=== PATIENT | male | born 1980 | race Caucasian/White ===

== ENCOUNTER 2021-01-20 11:14 | Emergency (ER) | payer SELFPAY ==
[2021-01-20 11:40] VITALS: BP 182/117; PULSE 74; RESP 19; TEMP 36.8; O2SAT 98; BMI 45.1
[2021-01-20 12:15] VITALS: BP 182/117; PULSE 74; RESP 19; TEMP 36.8; O2SAT 98
--- NOTE | 2021-01-20 12:26 | HMH.EDUTC ---
[facility] [place] Disposition Clinical Impression: Otitis externa Qualifiers: Otitis externa type: unspecified type Chronicity: unspecified Laterality: right Qualified Code(s): H60.91 - Unspecified otitis externa, right ear Otitis media Qualifiers: Otitis media type: unspecified Laterality: right Qualified Code(s): H66.91 - Otitis media, unspecified, right ear Disposition: Home, Self-Care Condition on Discharge: Good Instructions: DI for Otitis Externa, Ofloxacin Otic Additional Instructions: Follow up with your Family Doctor for recheck and monitoring of blood pressure to see if you may need an additional medication to help lower your blood pressure Use ear drops as prescribed and follow up with your Family Doctor if symptoms do not improve Over the counter Motrin and/or Tylenol may help with pain associated with your ear Return if needed Straight to ER if any life threatening symptoms Prescriptions: Ofloxacin [Floxin 0.3% OTIC Solution 5mL] 10 drops EAR-RIGHT BID 14 Days #15 ml Transmission Status: Received by [id number] Referrals: Shiva Russell [Primary Care Provider] - As needed Forms: Work/School Release Medical Decision Making - Munir Inquiry Pt receiving controlled substance: No Munir was queried for this patient: No Vital Signs: 01/20/21 11:40 01/20/21 12:15 Temperature 98.3 F 98.3 F Temperature Source Oral Pulse Rate 74 Pulse Rate [Right Brachial] 74 Respiratory Rate 19 19 Blood Pressure 182/117 H Blood Pressure [Right Arm] 182/117 H Blood Pressure Mean [Right Arm] 138 Blood Pressure Source [Right Arm] Automatic Cuff Blood Pressure Position [Right Arm] Sitting 02 Sat by Pulse Oximetry 98 Oxygen Delivery Method Room Air [facility] [place] HPI - General Stated complaint: ear pain Time Seen by Provider: 01/20/21 11:45 Mode of Arrival: Ambulatory Source of Information: Patient Limitations: No Limitations Description of Symptoms (Recalled from Triage Doc. by RN): PATIENT C/O RIGHT EAR ACHE X 1 WEEK HEENT Symptoms (Recalled from RN notes): Yes Resp Symptoms (Recalled from RN notes): No Skin Symptoms (Recalled from RN notes): No MS Symptoms (Recalled from RN notes): No Functional Status (Recalled from RN notes): WNL - History of Present Illness Provider Complaint: Patient states that he has been having pain in his right ear for over a week States that he just finished augmentin for ear infection but feels like it hasnt helped and got worse so he came in today to get it checked - Related Data Previous Rx's Medication Instructions Recorded amoxicillin 875 mg-potassium 1 tab PO BID 10 Days #20 tab 01/08/21 clavulanate 125 mg tablet Ofloxacin [Floxin 0.3% OTIC 10 drops EAR-RIGHT BID 14 Days #15 01/20/21 Solution 5mL] ml Allergies Allergy/AdvReac Type Severity Reaction Status Date / Time No Known Allergies Allergy Verified 01/08/21 18:35 - Worker's Comp Is this a Worker's Comp case?: No [facility] History - Hepatitis A Screen Drug use history?: No High risk sexual behaviors?: No History of sexually transmitted infection?: No Currently employed?: No Childcare worker?: No Do you have indoor plumbing?: Yes Do you have electricity?: Yes Attestation statement:: This patient has been screened for Hepatitis A risk factors. I have reviewed the patient's past medical history: Yes Amputation: No Fractures: No Comment: L5 disc shave; vasectomy - Social History Smoking Status: Never smoker Alcohol Intake: current Alcohol Intake Frequency:: holidays/special occasions only Occupational Status: employed ROS Obtained: Yes All systems reviewed & no additional complaints, Yes Systems reviewed as appropriate & no additional complaints - Constitutional Constitutional: Reports system reviewed and no additional complaints, except as docu - ENT Ears, Nose, Mouth, and Throat: Reports system reviewed and no additional complaints, except as docu, Reports otalgia Physical Exam - General
== END 2021-01-20 12:20 | disposition home or self-care (01) ==
PROVIDERS: Emergency Provider Nurse Practitioner; PCP Family Medicine
DX: H60.91 Unspecified otitis externa, right ear (principal); H66.91 Otitis media, unspecified, right ear
CPT/HCPCS: 99202; G0463

== ENCOUNTER → 2022-05-03 23:19 | Outpatient (CLI) | payer OTHER, SELFPAY ==
[2022-05-03 17:34] LABS: Basophils # 0.1 K/mm3 (0-0.2); Basophils % 1.2 % (0.1-2.0); Eosinophils # 0.3 K/mm3 (0.0-0.4); Eosinophils % 2.7 % (0.1-12.0); Hematocrit 47.2 % (42.0-52.0); Hemoglobin 15.1 g/dL (14.1-18.0); Lymphocytes # 3.2 K/mm3 (0.7-4.5); Lymphocytes % 33.7 % (10-50); Mean Corpuscular HGB Conc 32.1 g/dL (31.8-35.4); Mean Corpuscular Volume 77.8 fl (80-94); Mean Platelet Volume 9.5 fl (7.4-10.4); Monocytes # 0.5 K/mm3 (0.1-1.0); Monocytes % 5.2 % (1.7-9.3); Neutrophils # 5.5 K/mm3 (1.8-7.8); Neutrophils % 57.2 % (37.0-80.0); Platelet Count 318 K/mm3 (142-424); Red Blood Count 6.07 M/mm3 (4.60-6.20); Red Cell Distribution Width 15.5 % (11.5-17.5); White Blood Count 9.6 K/mm3 (4.8-10.8)
[2022-05-03 17:40] LABS: Alanine Aminotransferase 28 U/L (12-78); Albumin Level 4.2 g/dl (3.5-5.0); Albumin/Globulin Ratio 1.5 (1.1-1.8); Alkaline Phosphatase 86 U/L (38-126); Anion Gap 12.2 mEq/L (5-15); Aspartate Amino Transferase 33 U/L (17-59); Bilirubin,Total 0.6 mg/dl (0.2-1.3); Blood Urea Nitrogen 22 mg/dl (9-20); Calcium 8.7 mg/dl (8.4-10.2); Carbon Dioxide 27 mmol/L (22.0-30.0); Chloride 102 mmol/L (98-107); Chol/HDL Ratio 4.9 (1-3.5); Cholesterol 185 mg/dl (140-200); Estimated Glomerular Filt Rate 124 ml/min (>60); GFR (African American) 150 ML/MIN (>60); Globulin 2.8 g/dL (1.3-3.2); Glucose 100 mg/dl (74-100); HDL Cholesterol 38 mg/dl (40-60); Potassium 4.2 mmoL/L (3.5-5.1); Sodium 137 mmol/L (136-145); Triglycerides 172 mg/dl (30-150); VLDL Cholesterol 34 mg/dL (0-40)
[2022-05-03 17:42] LABS: Hemoglobin A1C 6.7 % (4.0-6.0)
[2022-05-03 17:51] LABS: Direct LDL Cholesterol 112.04 mg/dL (100-129)
[2022-05-03 18:11] LABS: Thyroid Stimulating Hormone 1.39 uIU/mL (0.465-4.68)
== END ==
PROVIDERS: PCP Nurse Practitioner Family; Visit Provider Nurse Practitioner Family
DX: I10 Essential (primary) hypertension (principal); Z13.1 Encounter for screening for diabetes mellitus; Z13.220 Encounter for screening for lipoid disorders
CPT/HCPCS: 80053; 80061; 83036; 84443; 85025

== ENCOUNTER 2023-04-27 19:51 | Outpatient (CLI) | payer OTHER, SELFPAY ==
[2023-04-27 19:13] LABS: Basophils # 0.1 K/mm3 (0-0.2); Basophils % 0.8 % (0.1-2.0); Eosinophils # 0.1 K/mm3 (0.0-0.4); Eosinophils % 1.9 % (0.1-12.0); Hematocrit 47.3 % (42.0-52.0); Hemoglobin 15.2 g/dL (14.1-18.0); Lymphocytes # 2.4 K/mm3 (0.7-4.5); Lymphocytes % 33.8 % (10-50); Mean Corpuscular HGB Conc 32.2 g/dL (31.8-35.4); Mean Corpuscular Hemoglobin 26.8 pg (27.0-31.2); Mean Corpuscular Volume 83.2 fl (80-94); Monocytes # 0.4 K/mm3 (0.1-1.0); Monocytes % 5.1 % (1.7-9.3); Neutrophils # 4.2 K/mm3 (1.8-7.8); Neutrophils % 58.3 % (37.0-80.0); Platelet Count 255 K/mm3 (142-424); Red Blood Count 5.69 M/mm3 (4.60-6.20); Red Cell Distribution Width 14.9 % (11.5-17.5); White Blood Count 7.1 K/mm3 (4.8-10.8)
[2023-04-27 19:34] LABS: Alanine Aminotransferase 52 U/L (12-78); Albumin Level 4.4 g/dl (3.5-5.0); Albumin/Globulin Ratio 1.6 (1.1-1.8); Alkaline Phosphatase 91 U/L (38-126); Anion Gap 13.7 mEq/L (5-15); Aspartate Amino Transferase 57 U/L (17-59); Bilirubin,Total 1.1 mg/dl (0.2-1.3); Blood Urea Nitrogen 20 mg/dl (9-20); Calcium 9.4 mg/dl (8.4-10.2); Carbon Dioxide 27 mmol/L (22.0-30.0); Chloride 100 mmol/L (98-107); Chol/HDL Ratio 5.8 (1-3.5); Cholesterol 187 mg/dl (140-200); Estimated Glomerular Filt Rate 106 ml/min (>60); GFR (African American) 128 ML/MIN (>60); Globulin 2.8 g/dL (1.3-3.2); Glucose 156 mg/dl (74-100); HDL Cholesterol 32 mg/dl (40-60); Potassium 4.7 mmoL/L (3.5-5.1); Sodium 136 mmol/L (136-145); Total Protein,Serum 7.2 g/dl (6.3-8.2); Triglycerides 228 mg/dl (30-150); VLDL Cholesterol 46 mg/dL (0-40)
[2023-04-27 19:45] LABS: Direct LDL Cholesterol 104.39 mg/dL (100-129)
[2023-04-27 19:51] LABS: 25-OH Vitamin D, Total 32.1 ng/mL (30-100)
[2023-04-27 20:04] LABS: Thyroid Stimulating Hormone 1.08 uIU/mL (0.465-4.68)
[2023-04-27 20:31] LABS: Creatinine,Urine Random 170 mg/dL (Not Estab.)
[2023-04-27 20:56] LABS: Hemoglobin A1C 8.1 % (4.0-6.0)
[2023-04-27 21:12] LABS: Microalbumin/Creatinine Ratio 282.9
== END 2023-04-27 23:59 ==
LOC: LAB.DROPOF 19:51
PROVIDERS: PCP Student in an Organized Health Care Education/Training Program; Visit Provider Student in an Organized Health Care Education/Training Program
DX: E11.9 Type 2 diabetes mellitus without complications (principal); I10 Essential (primary) hypertension; Z79.899 Other long term (current) drug therapy
CPT/HCPCS: 80053; 80061; 82043; 82306; 82570; 83036; 84155; 84443; 85025

== ENCOUNTER 2024-02-11 10:33 | Outpatient (CLI) | payer BC, OTHER, SELFPAY ==
[2024-02-11 19:38] LABS: Albumin Level 4.2 g/dl (3.5-5.0); Chloride 100 mmol/L (98-107); Potassium 3.8 mmoL/L (3.5-5.1); Sodium 132 mmol/L (136-145)
[2024-02-11 19:39] LABS: Red Blood Count 5.59 M/mm3 (4.60-6.20); White Blood Count 10.5 K/mm3 (4.8-10.8)
[2024-02-11 19:40] LABS: Basophils # 0.1 K/mm3 (0-0.2); Basophils % 0.9 % (0.1-2.0); Blood Urea Nitrogen 21 mg/dl (9-20); Eosinophils # 0.2 K/mm3 (0.0-0.4); Eosinophils % 1.9 % (0.1-12.0); Estimated Glomerular Filt Rate 106 ml/min (>60); GFR (African American) 128 ML/MIN (>60); Hematocrit 44.3 % (42.0-52.0); Hemoglobin 14.6 g/dL (14.1-18.0); Lymphocytes % 28.4 % (10-50); Mean Corpuscular Hemoglobin 26.1 pg (27.0-31.2); Mean Corpuscular Volume 79.2 fl (80-94); Mean Platelet Volume 11.6 fl (7.4-10.4); Monocytes # 0.7 K/mm3 (0.1-1.0); Monocytes % 6.5 % (1.7-9.3); Neutrophils # 6.5 K/mm3 (1.8-7.8); Platelet Count 312 K/mm3 (142-424); Red Cell Distribution Width 14.2 % (11.5-17.5)
[2024-02-11 19:41] LABS: Alanine Aminotransferase 57 U/L (12-78); Albumin/Globulin Ratio 1.6 (1.1-1.8); Alkaline Phosphatase 71 U/L (38-126); Anion Gap 7.8 mEq/L (5-15); Aspartate Amino Transferase 61 U/L (17-59); Bilirubin,Total 0.7 mg/dl (0.2-1.3); Calcium 9.3 mg/dl (8.4-10.2); Carbon Dioxide 28 mmol/L (22.0-30.0); Chol/HDL Ratio 7.3 (1-3.5); Cholesterol 191 mg/dl (140-200); Globulin 2.7 g/dL (1.3-3.2); Glucose 121 mg/dl (74-100); HDL Cholesterol 26 mg/dl (40-60); Total Protein,Serum 6.9 g/dl (6.3-8.2); Triglycerides 378 mg/dl (30-150); VLDL Cholesterol 76 mg/dL (0-40)
[2024-02-11 19:52] LABS: Direct LDL Cholesterol 107.42 mg/dL (100-129)
[2024-02-11 20:12] LABS: Thyroid Stimulating Hormone 1.76 uIU/mL (0.465-4.68)
[2024-02-11 20:22] LABS: HIV Combo NEGATIVE (Negative)
[2024-02-11 21:21] LABS: Hemoglobin A1C 7.9 % (4.0-6.0)
[2024-02-11 21:59] LABS: 25-OH Vitamin D, Total 26.3 ng/mL (30-100)
[2024-02-13 03:49] LABS: HCV Ab Non Reactive (Non Reactive)
== END 2024-02-11 23:59 | disposition home or self-care (01) ==
LOC: LAB.DROPOF 02-12 10:35
PROVIDERS: PCP Student in an Organized Health Care Education/Training Program; Visit Provider Student in an Organized Health Care Education/Training Program
DX: Z11.59 Encounter for screening for other viral diseases (principal); E55.9 Vitamin D deficiency, unspecified; E11.9 Type 2 diabetes mellitus without complications; Z79.84 Long term (current) use of oral hypoglycemic drugs; I10 Essential (primary) hypertension; Z68.42 Body mass index [BMI] 45.0-49.9, adult; E66.9 Obesity, unspecified
CPT/HCPCS: 80050; 80053; 80061; 82306; 83036; 84443; 85025; 86803; 87389

== ENCOUNTER 2024-03-15 09:18 | Emergency (ER) | payer BC, SELFPAY ==
--- NOTE | 2024-03-15 09:48 | EXP.UTC ---
Discharge Plan Disposition Patient Disposition: Still a Patient Prescriptions Prescriptions: No Action (DME) FreeStyle Lite Strips Strip See Rx Instructions .Route Qty: 100 3RF Rx Instructions: As directed (DME) blood-glucose meter [FreeStyle [place] Lite] Kit See Rx Instructions .Route Qty: 1 0RF Rx Instructions: As directed isopropyl alcohol 70 % swab 75 ea topical QID Qty: 75 1RF (DME) lancets 33 gauge misc See Rx Instructions .MEDSUPPLY Qty: 100 0RF Rx Instructions: Check Glucose lisinopril 40 mg tablet 40 mg PO DAILY Qty: 90 3RF metformin 1,000 mg tablet 1,000 mg PO BID Qty: 180 3RF guaifenesin 400 mg tablet 400 mg PO QID PRN (Reason: congestion) Qty: 20 0RF hydrochlorothiazide 25 mg tablet 25 mg PO BID Qty: 60 0RF carvedilol [Coreg] 12.5 mg tablet 12.5 mg PO BID Qty: 180 1RF Rx Instructions: must administer with a meal/food tirzepatide 2.5 mg/0.5 mL pen injector 2.5 mg SQ WEEKLY Qty: 2.5 0RF Rx Instructions: for 4 weeks cholecalciferol (vitamin D3) 50 mcg (2,000 unit) capsule 50 mcg PO DAILY Qty: 30 0RF Referrals Follow up/Referrals: Lelo Eid APRN [Primary Care Provider] - See instructions Print Language Print Language: Khmer Discharge ED Provider: Verena ([facility]el[facility] [place] HPI General Stated complaint: dizziness, vomiting, sweats Time Seen by Provider: 03/15/24 09:47 History of Present Illness Provider Complaint: 44-year-old male presents for complaints of dizziness, nausea, vomiting, vision abnormal and sweaty. Patient states he did start on Mounjaro about 3 weeks ago and he took a dose yesterday. Patient states he also had some Kazakh last night. Patient states the dizziness was slight yesterday morning and he went ahead and took his dose of Mounjaro and woke up at 430 this morning with increased in dizziness, sweaty, nausea and vomiting with vision changes. Related Data Previous Rx's ?Medication ?Instructions ?Recorded blood sugar diagnostic (FreeStyle #100 ea 05/02/23 Lite Strips) blood-glucose meter (FreeStyle #1 ea 05/02/23 [place] Lite kit) isopropyl alcohol 70 % topical swab 75 ea topical QID #75 ea 05/02/23 lancets 33 gauge #100 ea 05/02/23 lisinopril 40 mg tablet 40 mg PO DAILY #90 tabs 05/02/23 metformin 1,000 mg tablet 1,000 mg PO BID #180 tabs 05/16/23 carvedilol 12.5 mg tablet (Coreg) 12.5 mg PO BID #180 tabs 12/27/23 guaifenesin 400 mg tablet 400 mg PO QID PRN congestion #20 02/04/24 tabs hydrochlorothiazide 25 mg tablet 25 mg PO BID #60 tabs 02/04/24 cholecalciferol (vitamin D3) 50 50 mcg PO DAILY #30 caps 02/12/24 mcg (2,000 unit) capsule tirzepatide 2.5 mg/0.5 mL 2.5 mg (0.5 mL) SQ WEEKLY #2.5 mL 02/12/24 subcutaneous pen injector Allergies Allergy/AdvReac Type Severity Reaction Status Date / Time No Known Allergies Allergy Verified 03/05/24 15:38 [facility] Disclaimer: The information contained in this section may have been updated after the patient was seen, as this information can be updated by other users. Medical History , EDGE GLUER) Screening cholesterol level BMI 40.0-44.9, adult ALPHONSO (obstructive sleep apnea) Diabetes mellitus Hypertension Otitis media Otitis externa Surgical History , EDGE GLUER) No significant past surgical history Family History , EDGE GLUER) Diabetes Father Heart attack Father Cancer Mother Hypertension Father Thyroid disorder Mother Social History , EDGE GLUER) Smoking Status: Never smoker alcohol intake: current alcohol intake frequency: holidays/special occasions only substance use type: denies use current occupational status: employed Travel in the last 8 weeks: None marital status: Have you lived/traveled outside [place] in past 30 days?: No Contact w/someone who lives/traveled outside US past 30 days?: No Exposure to someone with infectious disease in past 14 days?: No Do you have a fever (greater than 100.4 F or 38 C)?: No Have you tested positive for COVID-19: No Exposed to someone with COVID-19 in past 14 days?: No Do you have a sore throat?: No Do you have a cough?: No Do you have any weakness?: No Do you have any diarrhea?: No Are you experiencing any unusual bleeding?: No Do you have any muscle aches/pain?: No Do you have any abdominal pain?: No Are you experiencing loss of taste or smell?: No ROS Obtained: Yes Systems reviewed as appropriate & no additional complaints except as documented Physical Exam General General appearance: alert and in no apparent distress Eye Eye exam: Present normal appearance and PERRL ENT ENT exam: Present normal exam Respiratory Respiratory exam: Present normal lung sounds bilaterally Cardiovascular Cardiovascular exam: Present regular rate and normal rhythm Neurological Exam Neurological exam: Present alert and oriented X3 Skin Skin exam: Present warm Medical Decision Making Medical Records Medical records reviewed: Yes I reviewed the patient's medical records. Screening: Per USPSTF and CDC recommendations, given the prevalence of disease in our region, it is our hospital?s policy to screen for HIV and viral Hepatitis for all patients aged 18 and over and those with ongoing risk factors. Munir Inquiry Pt receiving controlled substance: No Physician Consults Physician Consulted: Dr. Tom Time: 09:53 Reason -: Pt condition Comment/Response: Sent to the ER for evaluation due to hypertension, dizziness, vision changes
[2024-03-15 09:56] LABS: POC Glucose,Bedside 193 (70-110)
[2024-03-15 09:57] VITALS: BP 182/117; PULSE 76; RESP 20; TEMP 36.5; O2SAT 97; BMI 50.1
--- NOTE | 2024-03-15 09:57 | ECG_ITS ---
APPROVED REPORT Exam: Resting ECG HR:69 bpm ECG Measurements Heart Rate 69 AXES IA 151 P 159 QRSd 116 QRS 199 QT 384 T 187 QTc 403 Conclusion SINUS RHYTHM ARM LEADS REVERSED [INVERTED P AND QRS IN I] NORMAL ECG Electronically signed by : ANGEL PETERS, 03/15/2024 15:42:42
--- NOTE | 2024-03-15 10:00 | PC.NURSE ---
Fingerstick glucose 190 at 1000.
[2024-03-15] MEDS: MECLIZINE 25MG TABLET 50 MG PO (10:06)
[2024-03-15] MEDS: 0.9 % SODIUM CHLORIDE 1000ML 1,000 ML 999 ML IV (10:06)
--- NOTE | 2024-03-15 10:10 | HMH.EDGENADL ---
Discharge Plan Disposition Patient Disposition: Home, Self-Care Prescriptions Prescriptions: New meclizine 50 mg tablet 50 mg PO DAILY Qty: 30 0RF No Action (DME) FreeStyle Lite Strips Strip See Rx Instructions .Route Qty: 100 3RF Rx Instructions: As directed (DME) blood-glucose meter [FreeStyle [place] Lite] Kit See Rx Instructions .Route Qty: 1 0RF Rx Instructions: As directed isopropyl alcohol 70 % swab 75 ea topical QID Qty: 75 1RF (DME) lancets 33 gauge misc See Rx Instructions .MEDSUPPLY Qty: 100 0RF Rx Instructions: Check Glucose lisinopril 40 mg tablet 40 mg PO DAILY Qty: 90 3RF metformin 1,000 mg tablet 1,000 mg PO BID Qty: 180 3RF guaifenesin 400 mg tablet 400 mg PO QID PRN (Reason: congestion) Qty: 20 0RF hydrochlorothiazide 25 mg tablet 25 mg PO BID Qty: 60 0RF carvedilol [Coreg] 12.5 mg tablet 12.5 mg PO BID Qty: 180 1RF Rx Instructions: must administer with a meal/food tirzepatide 2.5 mg/0.5 mL pen injector 2.5 mg SQ WEEKLY Qty: 2.5 0RF Rx Instructions: for 4 weeks cholecalciferol (vitamin D3) 50 mcg (2,000 unit) capsule 50 mcg PO DAILY Qty: 30 0RF Referrals Follow up/Referrals: Lelo Eid APRN [Primary Care Provider] - See instructions Charbel Sánchez, PT [Physical Therapist] - See instructions Florencio Simmons MD [Physician] - See instructions Activity Restrictions/Add. Instructions Additional Instructions/Restrictions: Call your family doctor to establish care for this visit to the emergency department and schedule follow-up within 48 hours to ensure improvement. If you have any worsening of your condition or any other concerning signs or symptoms, return to the emergency department or your primary care doctor for further evaluation. Clinical Impressions Clinical Impression: Benign paroxysmal positional vertigo Print Language Print Language: French Discharge ED Provider: Raj Hernandes General Adult HPI General Chief complaint: Dizziness Stated complaint: dizziness, vomiting, sweats Time Seen by Provider: 03/15/24 09:47 Mode of Arrival: Wheelchair Source of Information: Patient Limitations: No Limitations Description of Symptoms (Recalled from ER Triage Doc. by RN): sweaty,dizzy,vomiting x3. History of Present Illness HPI narrative: Please note that above description of symptoms, in this electronic medical record under categorization of recalled from ER triage doctor by RN are reflective of an initial nursing assessment, however, is not reflective of my full history and physical exam that was personally taken and clarified. Consequentially, this preceding description of symptoms, which may include the patient's categorized chief complaint in the EMR, do not reflect my personal clinical impression, and the ultimate description of history of present illness and patient stated complaints should be deferred to this section of the note. Unless stated otherwise or congruent with this section of the note, additional signs, symptoms, or incongruence should be interpreted as inaccurate with my clinical impression. Related Data Previous Rx's ?Medication ?Instructions ?Recorded blood sugar diagnostic (FreeStyle #100 ea 05/02/23 Lite Strips) blood-glucose meter (FreeStyle #1 ea 05/02/23 [place] Lite kit) isopropyl alcohol 70 % topical swab 75 ea topical QID #75 ea 05/02/23 lancets 33 gauge #100 ea 05/02/23 lisinopril 40 mg tablet 40 mg PO DAILY #90 tabs 05/02/23 metformin 1,000 mg tablet 1,000 mg PO BID #180 tabs 05/16/23 carvedilol 12.5 mg tablet (Coreg) 12.5 mg PO BID #180 tabs 12/27/23 guaifenesin 400 mg tablet 400 mg PO QID PRN congestion #20 02/04/24 tabs hydrochlorothiazide 25 mg tablet 25 mg PO BID #60 tabs 02/04/24 cholecalciferol (vitamin D3) 50 50 mcg PO DAILY #30 caps 02/12/24 mcg (2,000 unit) capsule tirzepatide 2.5 mg/0.5 mL 2.5 mg (0.5 mL) SQ WEEKLY #2.5 mL 02/12/24 subcutaneous pen injector meclizine 50 mg tablet 50 mg PO DAILY #30 tabs 03/15/24 Allergies Allergy/AdvReac Type Severity Reaction Status Date / Time No Known Allergies Allergy Verified 03/05/24 15:38 [facility] Disclaimer: The information contained in this section may have been updated after the patient was seen, as this information can be updated by other users. Medical History , DIRECTOR OF UNDERGRADUATE ADMISSIONS) Screening cholesterol level BMI 40.0-44.9, adult ALPHONSO (obstructive sleep apnea) Diabetes mellitus Hypertension Otitis media Otitis externa Surgical History , DIRECTOR OF UNDERGRADUATE ADMISSIONS) No significant past surgical history Family History , DIRECTOR OF UNDERGRADUATE ADMISSIONS) Diabetes Father Heart attack Father Cancer Mother Hypertension Father Thyroid disorder Mother Social History , DIRECTOR OF UNDERGRADUATE ADMISSIONS) Smoking Status: Never smoker alcohol intake: current alcohol intake frequency: holidays/special occasions only substance use type: denies use current occupational status: employed Travel in the last 8 weeks: None marital status: Have you lived/traveled outside US in past 30 days?: No Contact w/someone who lives/traveled outside US past 30 days?: No Exposure to someone with infectious disease in past 14 days?: No Do you have a fever (greater than 100.4 F or 38 C)?: No Have you tested positive for COVID-19: No Exposed to someone with COVID-19 in past 14 days?: No Do you have a sore throat?: No Do you have a cough?: No Do you have any weakness?: No Do you have any diarrhea?: No Are you experiencing any unusual bleeding?: No Do you have any muscle aches/pain?: No Do you have any abdominal pain?: No Are you experiencing loss of taste or smell?: No Other Medical History Have you received the Pneumonia Vaccine: No ROS Obtained: Yes All systems reviewed & no additional complaints except as documented Physical Exam General General appearance: alert, in no apparent distress and obese Head Head exam: atraumatic and normocephalic Eye Eye exam: Present normal appearance, PERRL, EOMI and other (No nystagmus) Neck Neck exam: Present normal inspection, full ROM and trachea midline Respiratory Respiratory exam: Present normal lung sounds bilaterally; Absent respiratory distress, wheezes, stridor, accessory muscle use or prolonged expiratory phase Cardiovascular Cardiovascular exam: Present regular rate, normal rhythm and other (Pulses equal symmetric in upper and lower extremities) Abdominal Exam Abdominal exam: Present soft; Absent distention, tenderness or pulsatile mass Extremities Exam Extremities exam: Present edema (Minimal nonpitting) Neurological Exam Neurological exam: Present alert, oriented X3 and CN II-XII intact; Absent motor sensory deficit Skin Skin exam: Present warm and dry; Absent diaphoresis or erythema Medical Decision Making Medical Records Medical records reviewed: Yes I reviewed the patient's medical records. Screening: Per USPSTF and CDC recommendations, given the prevalence of disease in our region, it is our hospital?s policy to screen for HIV and viral Hepatitis for all patients aged 18 and over and those with ongoing risk factors. Munir Inquiry Pt receiving controlled substance: No Munir was queried for this patient: No Vital Signs: 03/15/24 09:57 03/15/24 10:21 03/15/24 10:45 Temperature 97.7 F Temperature Source Oral Pulse Rate 65 65 Pulse Rate [Right] 76 Respiratory Rate 20 16 16 Blood Pressure 178/110 H 150/102 H Blood Pressure [Right Arm] 182/117 H Blood Pressure Mean 134 118 Blood Pressure Mean [Right Arm] 138 02 Sat by Pulse Oximetry 97 97 97 Oxygen Delivery Method Room Air Lab Data Lab Results 03/15/24 09:49: POC Glucose 193 H 03/15/24 10:05: WBC 8.3, RBC 5.86, Hgb 15.0, Hct 46.8, MCV 79.9 L, MCH 25.6 L, MCHC 32.1, RDW 14.0, Plt Count 255, MPV 11.1 H, Neut % (Auto) 65.2, Lymph % (Auto) 24.9, [place] % (Auto) 5.6, Eos % (Auto) 2.8, Baso % (Auto) 0.8, Neut # (Auto) 5.4, Lymph # (Auto) 2.1, [place] # (Auto) 0.5, Eos # (Auto) 0.2, Baso # (Auto) 0.1, PT 9.5, INR 0.85 L, APTT 25.3, Sodium 138, Potassium 4.5, Chloride 102, Carbon Dioxide 29, Anion Gap 11.5, BUN 24 H, Creatinine 0.90, Estimated Creat Clear 105, Estimated GFR 92, Est GFR ( Amer) 111, Glucose 187 H, Hemoglobin A1c 7.5 H, Calcium 9.4, Magnesium 1.9, Total Bilirubin 0.4, AST 43, ALT 57, Alkaline Phosphatase 68, Troponin I < 0.01, NT-Pro-B Natriuret Pep < 20.0, Total Protein 7.4, Albumin 4.4, Globulin 3.0, Albumin/Globulin Ratio 1.5, TSH 1.48, Thyroxine (T4) 9.9 03/15/24 10:05 03/15/24 10:05 Orders (Tests/Meds): ED MEDICATIONS Discontinued Medications Generic Name Dose Route Start Last Admin Trade Name Freq PRN Reason Stop Dose Admin Sodium Chloride 1,000 mls @ 999 mls/hr 03/15/24 10:03 03/15/24 10:06 Sod Chlor 0.9% 1000ml Bag IV 03/15/24 11:03 999 mls/hr .Q1H1M ONE Administration Meclizine HCl 50 mg 03/15/24 10:03 03/15/24 10:06 Meclizine 25mg Tablet PO 03/15/24 10:04 50 mg ONCE ONE Administration ORDERS Category Date Time Status Complete Blood Count Auto Diff Stat Lab 03/15/24 10:05 Completed Comprehensive Metabolic Panel Stat Lab 03/15/24 10:05 Completed HIV Combo Stat Lab 03/15/24 10:05 Received Hemoglobin A1C Stat Lab 03/15/24 10:05 Completed Hepatitis C Ab Qual. W/ RFX Stat Lab 03/15/24 10:05 Received Magnesium Stat Lab 03/15/24 10:05 Completed NT Pro Brain Natriuretic Pep. Stat Lab 03/15/24 10:05 Completed POC Glucose,Bedside Routine Lab 03/15/24 09:49 Completed PT INR [Prothrombin Time INR] Stat Lab 03/15/24 10:05 Completed PTT [Activated Partial Thrombo Time] Stat Lab 03/15/24 10:05 Completed T4 (Thyroxine) Stat Lab 03/15/24 10:05 Completed TSH [Thyroid Stimulating Hormone] Stat Lab 03/15/24 10:05 Completed Troponin I Q3H Lab 03/15/24 13:15 Ordered Troponin I Q3H Lab 03/15/24 16:15 Ordered Troponin I Stat Lab 03/15/24 10:05 Completed Medical Decision Narrative: 44-year-old male with history of hypertension and diabetes presenting with dizziness. Patient states that around 4 AM today, 03/15, he rolled over in bed and was immediately hit with a wave of nausea. Asymptomatic when sitting still, worse when turning his head left or right or changing position. No chest pain, nausea, vomiting, but went to urgent care just prior to this visit. He was diaphoretic, hypertensive, and so they sent him to the emergency department for further evaluation. istory was obtained via conversation with patient and urgent care provider as well as family. On arrival, patient hemodynamically stable, alert, oriented x4, appropriate, GCS 15, moving all extremities spontaneously, pupils equal and reactive to light. Full physical exam performed and significant for obese male no acute distress. While he is laying still, states he is asymptomatic. Neurologically intact, ambulatory. He has no nystagmus at rest. Bilateral TMs and external auditory canals normal. Cardiac exam without murmurs gallops or rubs and pulses are equal and symmetric. Lungs are clear. He does have nonpitting lower extremity edema which he states is normal for him as he works on his feet. Differential includes BPPV. Less likely to be dissection, thrombotic stroke, hemorrhagic stroke, among others given asymptomatic at rest. Patient placed on continuous cardiac monitoring and continuous pulse ox with initial blood pressure 182/117, heart rate 76, saturation 97% on room air. Independent interpretation of EKG shows sinus rhythm 69 bpm with MD 151, QRS 116, QTc 403. Leftward axis. No acute ischemic change. Patient was given normal saline and meclizine 50 mg for symptomatic management and correction of underlying abnormalities. Patient was placed in observation beginning at 10:00 AM in order to give meds, fluids, reassess for improvement in symptoms and determine need for admission versus home-going. The patient was provided serial exams, cardiac monitoring, meds while awaiting results. Independent interpretation of results demonstrated nonactionable findings. On reevaluation, set patient up in bed. He was able to ambulate, but with dizziness. On repeat exam, patient has nystagmus with fast beating phase to the left consistent with BPPV. Burton maneuver was performed and patient states that he got moderate amount of relief. Still mildly dizzy, but much more tolerable. At this time, I feel patient is appropriate for discharge with physical therapy, ENT. Total observation time 2 hours. Heart score 2. CT angiograms of the head and neck as well as CT of the head were considered, but not deemed necessary due to neurologically intact patient with no symptoms at rest, NIHSS 0 with no cerebellar symptoms when laying still. No nystagmus at rest. Given patient presentation, workup, history, this most likely represents BPPV. Because patient at baseline without signs or symptoms of clinical decompensation, deemed appropriate for discharge. Results were relayed to patient who voiced understanding and were agreeable to outpatient management and follow up. I discussed my clinical impression with patient and answered all questions. At this time, the evidence for any other entities in the differential is insufficient to warrant any further testing or ED observation. This was explained as well. Advisory was given that persistent or worsening symptoms require further evaluation. I confirmed the understanding of this discussion. Automation Test Developer disclaimer Much of this encounter note is an electronic supervising deputy spoken language to printed text. Electronic supervising deputy of the spoken language may permit errors. Although I have reviewed the note, some errors may still exist. Critical Care Critical Care Time Critical Care Time: No
[2024-03-15 10:21] VITALS: BP 178/110; PULSE 65; RESP 16; O2SAT 97
[2024-03-15 10:22] LABS: Basophils # 0.1 K/mm3 (0-0.2); Basophils % 0.8 % (0.1-2.0); Eosinophils # 0.2 K/mm3 (0.0-0.4); Eosinophils % 2.8 % (0.1-12.0); Hematocrit 46.8 % (42.0-52.0); Lymphocytes # 2.1 K/mm3 (0.7-4.5); Lymphocytes % 24.9 % (10-50); Mean Corpuscular HGB Conc 32.1 g/dL (31.8-35.4); Mean Corpuscular Hemoglobin 25.6 pg (27.0-31.2); Mean Corpuscular Volume 79.9 fl (80-94); Mean Platelet Volume 11.1 fl (7.4-10.4); Monocytes # 0.5 K/mm3 (0.1-1.0); Monocytes % 5.6 % (1.7-9.3); Neutrophils # 5.4 K/mm3 (1.8-7.8); Neutrophils % 65.2 % (37.0-80.0); Platelet Count 255 K/mm3 (142-424); Red Blood Count 5.86 M/mm3 (4.60-6.20); White Blood Count 8.3 K/mm3 (4.8-10.8)
[2024-03-15 10:30] LABS: Alanine Aminotransferase 57 U/L (12-78); Albumin Level 4.4 g/dl (3.5-5.0); Albumin/Globulin Ratio 1.5 (1.1-1.8); Alkaline Phosphatase 68 U/L (38-126); Anion Gap 11.5 mEq/L (5-15); Aspartate Amino Transferase 43 U/L (17-59); Bilirubin,Total 0.4 mg/dl (0.2-1.3); Blood Urea Nitrogen 24 mg/dl (9-20); Calcium 9.4 mg/dl (8.4-10.2); Carbon Dioxide 29 mmol/L (22.0-30.0); Chloride 102 mmol/L (98-107); Creatinine Clearance Estimated 105 mL/min (50-200); Estimated Glomerular Filt Rate 92 ml/min (>60); GFR (African American) 111 ML/MIN (>60); Glucose 187 mg/dl (74-100); Magnesium 1.9 mg/dl (1.6-2.3); Potassium 4.5 mmoL/L (3.5-5.1); Sodium 138 mmol/L (136-145); Total Protein,Serum 7.4 g/dl (6.3-8.2)
[2024-03-15 10:34] LABS: Activated Partial Thrombo Time 25.3 seconds (22.5-28.5); INR 0.85 (0.9-1.1); Prothrombin Time 9.5 seconds (9.2-12.1)
[2024-03-15 10:38] LABS: Hemoglobin A1C 7.5 % (4.0-6.0)
[2024-03-15 10:43] LABS: NT Pro Brain Natriuretic Pep. < 20.0 pg/mL (0-125)
[2024-03-15 10:45] VITALS: BP 150/102; PULSE 65; RESP 16; O2SAT 97
[2024-03-15 10:45] LABS: Troponin I < 0.01 ng/ml (0.00-0.034)
[2024-03-15 10:48] LABS: T4 (Thyroxine) 9.9 ug/dl (5.53-11.0)
[2024-03-15 11:01] LABS: Thyroid Stimulating Hormone 1.48 uIU/mL (0.465-4.68)
[2024-03-15 11:53] VITALS: BP 149/98; PULSE 65; RESP 18; TEMP 36.9; O2SAT 95
[2024-03-15 11:59] LABS: HIV Combo NEGATIVE (Negative)
[2024-03-15 12:07] LABS: Hepatitis C Ab Qual. W/ RFX NEGATIVE (Negative)
== END 2024-03-15 11:54 | disposition home or self-care (01) ==
LOC: UTC 09:23 → ER 09:53
PROVIDERS: Emergency Provider Emergency Medicine; PCP Nurse Practitioner Family
DX: H81.10 Benign paroxysmal vertigo, unspecified ear (principal); R11.10 Vomiting, unspecified; H53.8 Other visual disturbances; R61 Generalized hyperhidrosis
CPT/HCPCS: 80053; 82962; 83036; 83735; 83880; 84436; 84443; 84484; 85025; 85610; 85730; 86803; 87389; 93005; 96360; 99283; J7030

== ENCOUNTER 2024-05-14 13:45 | Outpatient (CLI) | payer BC, SELFPAY ==
--- NOTE | 2024-05-14 13:56 | XR_ITS ---
FINAL REPORT CLINICAL HISTORY: left foot pain FINDINGS: AP, oblique and lateral views of the left foot were obtained. No prior exam for comparison. There is no acute fracture or dislocation. The joint spaces are preserved. Calcification of the distal Achilles tendon. Otherwise, soft tissues are unremarkable. IMPRESSION: No acute osseous abnormality of the left foot. Reviewed, Interpreted and Dictated by Trini Worthington MD Transcribed by Karen Mendoza Authenticated and [facility]
--- NOTE | 2024-05-14 13:56 | XR_ITS ---
FINAL REPORT CLINICAL HISTORY: right foot pain FINDINGS: AP, oblique and lateral views of the right foot were obtained. No prior exam for comparison. There is no acute fracture or dislocation. The joint spaces are preserved. Soft tissues are unremarkable. IMPRESSION: No acute osseous abnormality of the right foot. Reviewed, Interpreted and Dictated by Trini Worthington MD Transcribed by Karen Mendoza Authenticated and [facility]
[2024-05-16 07:13] LABS: H. pylori Breath Test Positive (Negative)
== END 2024-05-14 23:59 | disposition home or self-care (01) ==
LOC: LAB 13:46
PROVIDERS: PCP Nurse Practitioner Family; Visit Provider Nurse Practitioner Family
DX: R14.2 Eructation (principal); M79.671 Pain in right foot; M79.672 Pain in left foot
CPT/HCPCS: 73630; 83013

== ENCOUNTER 2024-06-19 15:33 | Outpatient (CLI) | payer BC, SELFPAY ==
[2024-06-19 15:38] LABS: Anti-Centromere B Antibodies ND; Anti-DNA (DS) Ab Qn ND; Anti-Jo-1 ND; Antichromatin Antibodies ND; Antiscleroderma-70 Antibodies ND; Microscopic, Urine URINE MICROSCOPIC (MICROSCOPIC); RNP Antibodies ND; Sjogren's Anti-SS-A ND; Sjogren's Anti-SS-B ND
[2024-06-19 16:04] LABS: Basophils # 0.1 K/mm3 (0-0.2); Basophils % 0.8 % (0.1-2.0); Eosinophils # 0.1 Kmm3 (0.0-0.4); Eosinophils % 1.5 % (0.1-12.0); Hematocrit 43.7 % (42.0-52.0); Hemoglobin 14.4 g/dL (14.1-18.0); Lymphocytes # 2.5 K/mm3 (0.7-4.5); Lymphocytes % 26.4 % (10-50); Mean Corpuscular Hemoglobin 26.1 pg (27.0-31.2); Mean Corpuscular Volume 79.2 fl (80-94); Mean Platelet Volume 10.8 fl (7.4-10.4); Monocytes # 0.7 K/mm3 (0.1-1.0); Neutrophils # 6.2 K/mm3 (1.8-7.8); Neutrophils % 64.1 % (37.0-80.0); Nucleated Red Blood Cells # 0 10^3/uL; Nucleated Red Blood Cells % 0 %; Platelet Count 356 K/mm3 (142-424); Red Blood Count 5.52 M/mm3 (4.60-6.20); Red Cell Distribution Width 14.8 % (11.5-17.5); Red Cell Distribution Width-SD 42.6 fL; White Blood Count 9.6 K/mm3 (4.8-10.8)
[2024-06-19 16:12] LABS: Appearance,Urine CLEAR (Clear); Bilirubin,Urine Negative (Negative); Blood, Urine Negative (Negative); Color,Urine YELLOW (Yellow); Glucose,Urine (UA) Negative (Negative); Ketones,Urine Negative (Negative); Leukocyte Esterase,Urine Negative (Negative); Nitrate,Urine Negative (Negative); Protein,Urine Negative (Negative); Specific Gravity, Urine 1.025 (1.005-1.030); Urobilinogen,Urine 0.2 EU/dl (0.2)
[2024-06-19 16:25] LABS: Albumin Level 4.6 g/dl (3.5-5.0); Bacteria,Urine Trace /lpf; Chloride 102 mmol/L (98-107); Potassium 4.2 mmoL/L (3.5-5.1); Sodium 139 mmol/L (136-145); Squamous Epithelial Cell,Urine Occasional #/hpf (0-5); WBC,Urine Occasional #/hpf (0-3)
[2024-06-19 16:27] LABS: Alanine Aminotransferase 50 U/L (12-78); Aspartate Amino Transferase 42 U/L (17-59); Blood Urea Nitrogen 34 mg/dl (9-20); Estimated Glomerular Filt Rate 66 ml/min (>60); GFR (African American) 80 ML/MIN (>60)
[2024-06-19 16:28] LABS: Albumin/Globulin Ratio 1.8 (1.1-1.8); Alkaline Phosphatase 55 U/L (38-126); Anion Gap 11.2 mEq/L (5-15); Bilirubin,Total 0.4 mg/dl (0.2-1.3); Calcium 9.9 mg/dl (8.4-10.2); Carbon Dioxide 30 mmol/L (22.0-30.0); Chol/HDL Ratio 5.2 (1-3.5); Cholesterol 170 mg/dl (140-200); Globulin 2.6 g/dL (1.3-3.2); Glucose 101 mg/dl (74-100); HDL Cholesterol 33 mg/dl (40-60); Iron 64 ug/dL (49-181); Total Protein,Serum 7.2 g/dl (6.3-8.2); Triglycerides 160 mg/dl (30-150); VLDL Cholesterol 32 mg/dL (0-40)
[2024-06-19 16:38] LABS: Total Iron Binding Capacity 351 ug/dL (261-462)
[2024-06-19 16:39] LABS: Direct LDL Cholesterol 99.06 mg/dL (100-129)
[2024-06-19 16:59] LABS: Thyroid Stimulating Hormone 0.74 uIU/mL (0.465-4.68)
[2024-06-19 17:00] LABS: Hemoglobin A1C 5.8 % (4.0-6.0)
[2024-06-19 17:03] LABS: Ferritin 101 ng/ml (17.9-464)
[2024-06-19 17:07] LABS: 25-OH Vitamin D, Total 71.3 ng/mL (30-100)
[2024-06-19 17:19] LABS: Magnesium 1.8 mg/dl (1.6-2.3)
[2024-06-19 18:10] LABS: Vitamin B12 745 pg/mL (239-931)
[2024-06-20 12:12] LABS: Thyroid Peroxidase Antibodies 16 IU/mL (0-34)
[2024-06-20 14:12] LABS: Antinuclear Antibodies (ANA) Negative (Negative)
== END 2024-06-19 23:59 | disposition home or self-care (01) ==
PROVIDERS: Nurse Practitioner; PCP Nurse Practitioner Family; Visit Provider Nurse Practitioner Family
DX: Z01.89 Encounter for other specified special examinations (principal); R42 Dizziness and giddiness; R29.90 Unspecified symptoms and signs involving the nervous system; R94.31 Abnormal electrocardiogram [ECG] [EKG]; E78.5 Hyperlipidemia, unspecified; R53.83 Other fatigue; R55 Syncope and collapse; E11.9 Type 2 diabetes mellitus without complications; I11.9 Hypertensive heart disease without heart failure; R29.898 Other symptoms and signs involving the musculoskeletal system; G47.33 Obstructive sleep apnea (adult) (pediatric); R41.3 Other amnesia; Z79.84 Long term (current) use of oral hypoglycemic drugs; Z68.41 Body mass index [BMI] 40.0-44.9, adult; E66.9 Obesity, unspecified
CPT/HCPCS: 36415; 80053; 80061; 81001; 82306; 82607; 82728; 83036; 83540; 83550; 83735; 84156; 84439; 84443; 85025; 86038; 86376; 87086; 93270

== ENCOUNTER 2024-06-24 14:12 | Outpatient (CLI) | payer BC, SELFPAY ==
--- NOTE | 2024-06-24 14:30 | CT_ITS ---
FINAL REPORT TECHNIQUE: Thin section axial images were obtained from skull base to vertex without contrast. Coronal reconstruction images were obtained from the axial data. Exam was performed using dose reduction techniques such as automated exposure control, adjustment of the mA and kV according to patient size, and use of iterative reconstruction technique. CLINICAL HISTORY: near syncope,abnl ecg,dizziness FINDINGS: There is no mass effect or midline shift. There is no hydrocephalus. There is no intracranial hemorrhage. The posterior fossa is without acute abnormality. The basilar cisterns are preserved. The soft tissues are without acute abnormality. No acute osseous abnormality is identified. IMPRESSION: No acute intracranial abnormality. Reviewed, Interpreted and Dictated by Trini Worthington MD Transcribed by Caridad Dewitt Authenticated and [facility]
== END 2024-06-24 23:59 | disposition home or self-care (01) ==
LOC: RAD 14:13
PROVIDERS: PCP Nurse Practitioner Family; Visit Provider Nurse Practitioner
DX: R42 Dizziness and giddiness (principal); R94.31 Abnormal electrocardiogram [ECG] [EKG]; R55 Syncope and collapse
CPT/HCPCS: 70450